=== PATIENT | female | born 1935 | race Caucasian/White ===

== ENCOUNTER 2020-10-21 14:03 | Outpatient (RCR) | payer MEDICARE, SELFPAY ==
[2014-12-27 08:42] VITALS: BMI 22.3
== END 2020-10-21 23:59 ==
LOC: IMMUN 14:03
PROVIDERS: PCP Nurse Practitioner Family; Referring Provider Family Medicine; Visit Provider Family Medicine
DX: Z23 Encounter for immunization (principal)
CPT/HCPCS: 0011A; 0012A